=== PATIENT | female | born 1970 | race Caucasian/White ===

== ENCOUNTER → 2022-10-31 | Outpatient (CLI) | payer OTHER ==
[~2022-10-31] MED LIST: ANAPROX DS550 MG PO; CLARITIN10 MG PO; CORTISPORIN 1%-10 M1 OT; MOTRIN800 MG PO; TRIMOX500 MG PO
== END | disposition home or self-care (01) ==
LOC: CT 12:26
PROVIDERS: ATTEND Podiatrist
DX: T85.848A Pain due to other internal prosthetic devices, implants and grafts, initial encounter (principal); M19.072 Primary osteoarthritis, left ankle and foot; Y84.8 Other medical procedures as the cause of abnormal reaction of the patient, or of later complication, without mention of misadventure at the time of the procedure; Y92.89 Other specified places as the place of occurrence of the external cause

== ENCOUNTER → 2022-11-26 | Day surgery (SDC) | payer OTHER ==
[2022-11-24 14:34] VITALS: BP 135/72
[~2022-11-26] VITALS: Ht 160 cm; Wt 74.8 kg
[~2022-11-26] MED LIST changes: +DOXYCYCLINE HY100 M3 PO; +TRAMADOL HCL50 MG PO; +XARELTO10 MG PO
[2022-11-26 07:22] VITALS: BP 102/60
[2022-11-26 10:20] VITALS: BP 126/66
[2022-11-26 10:35] VITALS: BP 123/52
[2022-11-26 10:50] VITALS: BP 121/52
[2022-11-26 11:05] VITALS: BP 123/54
[2022-11-26 13:02] VITALS: BP 110/50
== END | disposition home or self-care (01) ==
LOC: SDC 11-24 14:00
PROVIDERS: ATTEND Podiatrist
DX: M79.672 Pain in left foot (principal); M96.0 Pseudarthrosis after fusion or arthrodesis; F17.210 Nicotine dependence, cigarettes, uncomplicated; Z98.51 Tubal ligation status; Z98.890 Other specified postprocedural states

== ENCOUNTER 2023-05-15 17:10 | Emergency (ER) | payer OTHER ==
[~2023-05-15] VITALS: Ht 160 cm; Wt 86.2 kg
[2023-05-15 17:17] VITALS: BP 138/79
[2023-05-15] MEDS ORDERED: Clindamycin Phosphate 50 ML IV ONE (17:40)
[2023-05-15 17:59] LABS: BASO # 0.1 10*3/uL (0.0-0.1); EOS # 0.2 10*3/uL (0.0-0.4); EOS % 3.9 % (1.0-4.0); HEMATOCRIT 36.7 % (37.0-47.0); LYMPH # 1.6 10*3/uL (1.3-4.4); LYMPH % 31.9 % (27.0-41.0); MEAN CELL VOLUME 92.9 fl (81.0-99.0); MEAN CORPUSCULAR HGB 28.9 pg (27.0-31.0); MEAN CORPUSCULAR HGB CONC 31.1 g/dl (33.0-37.0); MONO # 0.5 10*3/uL (0.1-1.0); MONO % 9.9 % (3.0-9.0); NEUT # 2.7 10*3/uL (2.3-7.9); NEUT % 53.1 % (47.0-73.0); PLATELET COUNT AUTOMATED 310 10*3/uL (130-400); RED BLOOD COUNT 3.95 10*6/uL (4.10-5.10); RED CELL DISTRI WIDTH 13.5 % (0-14.5); WHITE BLOOD COUNT 5.1 10*3/uL (4.8-10.8)
[2023-05-15 18:20] LABS: ALKALINE PHOSPHATASE 108 U/L (46-116); BUN 12 mg/dl (9-23); CHLORIDE 104 mmol/L (98-107); POTASSIUM 3.4 mmol/L (3.4-5.1); SGPT/ALT 13 U/L (5-49); TOTAL PROTEIN 6.5 gm/dL (6.0-8.0)
[2023-05-15] MEDS ORDERED: CLINDAMYCIN HC300 MG PO (18:24)
[2023-05-15] MEDS ORDERED: FLUONAZOLE150 M1 PO (18:24)
== END 2023-05-15 18:31 | disposition home or self-care (01) ==
LOC: ED 17:10
PROVIDERS: Physician Assistant
DX: L08.89 Other specified local infections of the skin and subcutaneous tissue (principal); F41.9 Anxiety disorder, unspecified; Z88.0 Allergy status to penicillin; Z87.891 Personal history of nicotine dependence